=== PATIENT | female | born 1950 | race Caucasian/White ===

== ENCOUNTER 2025-03-05 10:50 | Emergency (ER) | payer OTHER, SELFPAY ==
[2025-03-05 10:53] VITALS: BP 131/56
[2025-03-05 11:39] VITALS: BMI 25.6
[2025-03-05] MEDS: NSS 1000 IV (11:41)
[2025-03-05] MEDS: ZOFRAN 4 MG IV (11:41)
[2025-03-05 11:45] LABS: Glucose - Point of Care 148 mg/dl (70-99)
[2025-03-05 11:51] VITALS: BP 134/76
[2025-03-05 11:58] LABS: % Basophils 0.4 % (0-2); % Eosinophils 0.8 % (0-6); % Immature Granulocytes 0.3 % (0-0.5); % Monocytes 4.6 % (1.7-9.3); % Neutrophils 85.9 % (42.2-75.2); Absolute Basophils 0.1 10^3/uL (0-0.2); Absolute Eosinophils 0.1 10^3/uL (0-0.7); Absolute Monocytes 0.6 10^3/uL (0.1-0.6); Absolute Neutrophils 10.3 10^3/uL (1.4-6.5); Hematocrit 35.9 % (37.0-47.0); Hemoglobin 12.4 g/dL (12.0-16.0); Mean Corp Hgb Conc. 34.5 g/dL (33.0-37.0); Mean Corpuscular Hgb 29.4 pg (27.0-31.0); Mean Corpuscular Volume 85.1 fL (81.0-99.0); Mean Platelet Volume 9.3 fL (7.4-10.4); Nucleated Red Blood Cells % 0 %; Platelet Count 175 10^3/uL (130-400); Red Blood Cell Count 4.22 10^6/uL (4.20-5.40); Red Cell Dist. Width 14.3 % (11.5-14.5)
[2025-03-05 12:00] VITALS: BP 135/93
--- NOTE | 2025-03-05 12:00 | ED.GENMED ---
History of Present Illness
General
Chief Complaint: Skin Problem
Source: patient and family
Exam Limitations: none
Time Seen by Provider: 03/05/25 11:16
Nursing documentation reviewed up to this point in time: agreed with
History of Present Illness
History of Present Illness:
74-year-old female with history of NIDDM, HTN, HLD presents for feeling chilled 3 nights ago and slept a lot, nausea, vomiting and nonbloody diarrhea for the past 2 days and sleeping a lot, no known sick contacts, no recent travel. No recent
antibiotic use. She also broke out in a painful rash across her forehead this morning.
Denies abdominal pain.
Past History
Past History
ED Past Medical History: HTN, Hypercholesterolemia and NIDDM
ED Past Surgical History: Cholecystectomy and Tonsilectomy
Social History
Tobacco: Non-smoker
Alcohol: None
Review of Systems
Review of Systems
Allergies reviewed?: Yes
All Other Systems: ROS reviewed and negative except as documented in HPI and ROS
Constitutional: Reports fever and chills
Respiratory: Denies trouble breathing
Cardiac: Denies chest pain
ABD/GI: Reports nausea, vomiting and diarrhea; Denies abdominal pain, bloody stools or black stools
: Denies dysuria, frequency or difficulty voiding
Musculoskeletal: Reports no symptoms
Skin: Reports rash (Red rash across forehead, painful)
Neurological: Reports no symptoms
Phy Exam
Physical Exam
Physical Exam:
GENERAL: No acute distress. A&Ox3.
CONSTITUTIONAL: Afebrile.
EYES: clear, conjunctivae normal
ENMT: moist mucus membranes, Pharynx nl
RESPIRATORY: Regular respirations, nonlabored, lungs clear.
CARDIOVASCULAR: Regular rate and rhythm, no murmurs, no rubs.
GI: Soft, nontender, normal BS
MUSCULOSKELETAL: Moves with ease. Well perfused.
SKIN: Warm, dry, pink smooth red tender rash across forehead to hairline and just above eyebrows, starting to blister on edges.
PSYCH: Normal mood and affect. Well kept, interactive and appropriate
NEUROLOGIC: Awake, alert and oriented. No focal neurological deficits
Course
Orders/Labs/Results
Orders:
Orders
03/05/25 11:23
0.9% Sodium Chloride 1000 ml [Nss] 1,000 ml IV BOLUS
Ondansetron Injectable [Zofran] 4 mg IV NOW STA
Valacyclovir HCl [Valtrex] 1,000 mg PO NOW STA
03/05/25 11:48
Complete Blood Count/With Diff Urgent
Comprehensive Metabolic Panel Urgent
STOOL [C difficile Antigen & Toxins] Urgent
STEF Source: Feces/Stool
Specimen Description:
Date Specimen was Collected: 03/05/25
Time Specimen was Collected: 11:26
Stool Culture Urgent
STEF Source: Feces/Stool
Specimen Description:
Date Specimen was Collected: 03/05/25
Time Specimen was Collected: 11:26
03/05/25 13:59
Valacyclovir HCl [Valtrex] 500 mg .ROUTE .STK-MED ONE
Abnormal Lab Results
03/05/25 03/05/25
11:43 11:48
WBC 12.0 H 10^3/uL
(4.8-10.8)
Hct 35.9 L %
(37.0-47.0)
Absolute Neuts (auto) 10.3 H 10^3/uL
(1.4-6.5)
Absolute Lymphs (auto) 1.0 L 10^3/uL
(1.2-3.4)
Neutrophils % 85.9 H %
(42.2-75.2)
Lymphocytes % 8.0 L %
(20.5-51.1)
Sodium 131 L mmol/L
(135-145)
Carbon Dioxide 21 L mmol/L
(22-30)
Glucose 150 H mg/dl
(70-99)
POC Glucose 148 H mg/dl
(70-99)
03/05/25 11:48
03/05/25 11:48
Vital Signs
Initial and Last Documented VS:
Initial Vital Signs
Temp Pulse Resp BP Pulse Ox
98 F 80 16 131/56 98
03/05/25 10:53 03/05/25 10:53 03/05/25 10:53 03/05/25 10:53 03/05/25 10:53
Last Documented Vital Signs
Temp Pulse Resp BP Pulse Ox
97.6 F 77 20 121/67 94
03/05/25 11:51 03/05/25 11:51 03/05/25 11:51 03/05/25 13:00 03/05/25 13:45
MDM/Problems Addressed
Differential Diagnosis Includes:
Zoster, cellulitis
Viral gastroenteritis
MDM/Problems Addressed:
74-year-old female with history of NIDDM, HTN, HLD presents for feeling chilled 3 nights ago and slept a lot, nausea, vomiting and nonbloody diarrhea for the past 2 days and sleeping a lot, no known sick contacts, no recent travel. No recent
antibiotic use. She also broke out in a painful rash across her forehead this morning.
Denies abdominal pain.
1:00 PM:
CBC: WBC 12.0
CMP: No clinically significant abnormality mild hyponatremia, she has received 1 L of normal saline here today which should help correct
Stool C. difficile negative for toxin
Forehead rash consistent with Zoster
No diarrhea or vomiting since arrival.
*Critical Care Note
Total Time (30-74mins, 75-104mins- exclusive of procedures): Not Applicable
ED Attending Note
-
Portions of this chart may have been created with voice recognition software.� Occasional wrong word or��sound alike� substitutions may have occurred due to the inherent limitations of voice recognition software.
Discharge Plan
Departure
Patient Disposition: Home (Routine Discharge)
Date of Disposition: 03/05/25
Time of Disposition: 13:28
Patient with high blood pressure during this ER visit?: No
Condition: Good
Discharge Problem:
Shingles, Viral gastroenteritis
Instructions: Viral gastroenteritis in adults, Shingles, Nausea and vomiting in adults - ED discharge instructions
Prescriptions:
New
ondansetron 4 mg tablet,disintegrating
4 mg PO Q8H PRN (Reason: nausea and vomiting) Qty: 14 0RF
valacyclovir [Valtrex] 1 gram tablet
1,000 mg PO TID Qty: 20 0RF
tramadol 50 mg tablet
50 mg PO BID PRN (Reason: Pain) Qty: 10 0RF
Referrals:
Sana Guerrero MD [Family Provider] - As needed
Stand Alone Forms: Return to Work
Activity Restrictions/Additional Instructions:
As we discussed, you most likely have a viral gastroenteritis.
Drink plenty of fluids
I sent a prescription to your pharmacy for Valtrex for the shingles on your forehead
I sent a prescription to your pharmacy for Zofran to use as needed for nausea and vomiting
I sent a prescription to your pharmacy for tramadol which is a narcotic pain medication for the forehead pain to use as needed if Tylenol or ibuprofen are not helping.
Interventions
Interventions:
*Risk Screen - Suicide Last Done: 03/05/25 10:53
*General Assessment Last Done: 03/05/25 11:51
*Neglect/Abuse Screening Last Done: 03/05/25 10:53
*ED- Fall Risk Assessment Last Done: 03/05/25 11:51
*ED COVID-19 Vaccine History Last Done: 03/05/25 11:51
*Nursing Disposition Last Done: 03/05/25 14:04
ED-Skin Assessment Last Done: 03/05/25 11:51
Discharge Date and Time
Discharge Date/Time: 03/05/25 14:05
Print Language: SLOVAK
[2025-03-05 12:10] LABS: ALT (SGPT) 19 U/L (0-35); AST (SGOT) 26 U/L (14-36); Albumin 3.7 g/dl (3.5-5.0); Alkaline Phosphatase 75 U/L (38-126); Blood Urea Nitrogen 17 mg/dl (7-17); Calcium 8.8 mg/dl (8.4-10.2); Carbon Dioxide 21 mmol/L (22-30); Chloride 105 mmol/L (98-107); Estimated Creatinine Clearance 43 ml/min; Glucose 150 mg/dl (70-99); Potassium 3.9 mmol/L (3.5-5.1); Sodium 131 mmol/L (135-145); Total Bilirubin 1.1 mg/dl (0.2-1.3); Total Protein 6.4 g/dl (6.3-8.2); eGFR 59.12
[2025-03-05 13:00] VITALS: BP 121/67
[2025-03-05] MEDS: VALTREX 1000 MG PO (14:01)
== END 2025-03-05 14:05 | disposition home or self-care (01) ==
LOC: EMR 10:50
PROVIDERS: Registered Nurse; EMERGENCY PHYSICIAN Emergency Medicine; FAMILY PHYSICIAN Internal Medicine
DX: B02.9 Zoster without complications (principal); A08.4 Viral intestinal infection, unspecified; E11.9 Type 2 diabetes mellitus without complications; I10 Essential (primary) hypertension; E78.00 Pure hypercholesterolemia, unspecified; Z90.49 Acquired absence of other specified parts of digestive tract
CPT/HCPCS: 99283; 96374; 96361; 80053; 82962; 85025; 87045; 87046; 87324; 87427; 87449